=== PATIENT | female | born 1980 | race Caucasian/White ===

== ENCOUNTER 2023-04-13 22:06 | Emergency (ER) | payer MEDICAID, SELFPAY ==
[2023-04-13 22:07] VITALS: BP 172/100; PULSE 89; RESP 17; TEMP 36.4; O2SAT 100; BMI 43.7
--- NOTE | 2023-04-13 22:42 | EDS_ITS ---
HPI History of Present Illness Chief Complaint: Chest Pain Narrative Narrative: 43-year-old female who denies significant past medical history presents with burning sensation in her left chest along with pleuritic chest pain that she is essentially had since yesterday after lunch. While it was not as severe, she states today it worsened and she has a sharp pain when she takes a deep breath along with a burning sensation on the left side of her chest under her left breast. She denies any fevers or chills, no nausea or vomiting, no abdominal pain. She denies any recent leg swelling. She does take control pills. She presents with her left-sided chest pain that is mainly pleuritic since yesterday. PFSH PFS Home Medications vits,calcium no.78-iron fumarate-folic acid 29 mg-1 mg tablet (Prenatabs FA) 1 tab PO DAILY 04/15/14 [History Last Taken 04/30/14 21:00 one] ibuprofen 600 mg tablet 600 mg PO Q6H PRN Pain ##40 05/01/14 [Rx Last Taken Unknown] clindamycin HCl 300 mg capsule 300 mg TID 11/21/15 [History Last Taken Unknown] naproxen 500 mg tablet 500 mg PO BID #20 tabs 11/21/15 [Rx Last Taken Unknown] oxycodone-acetaminophen 5 mg-325 mg tablet 1 - 2 tab PO Q4H PRN PRN Pain #20 tabs 11/21/15 [Rx Last Taken Unknown] penicillin V potassium 500 mg tablet 500 mg PO 4X/DAY #40 tabs 11/21/15 [Rx Last Taken Unknown] Allergy/AdvReac Type Severity Reaction Status Date / Time ragweed pollen Allergy Other Verified 04/13/23 22:09 Social History Smoking Status: Never smoker ROS ROS ED ROS Narrative Constitutional: No fever, no chills. HEENT: No sore throat. No neck pain. No loss of vision. No rhinorrhea. Cardiovascular: Left-sided burning and pleuritic chest pain. No palpitations. No pedal edema. Respiratory: No cough, no shortness of breath. Abdominal: No abdominal pain. No nausea. No vomiting. Genitourinary: No dysuria. No hematuria. Musculoskeletal: No myalgias. No arthralgias. Neurologic: No headaches. No dizziness. No lightheadedness. Skin: No rash. No change in color. Psychiatric: No depression. No anxiety. EXAM Physical Exam Narrative Exam Narrative: Afebrile. Vital signs noted. HEENT: Normocephalic. Atraumatic. PERRL, EOMI. Neck soft and supple. No point tenderness or step off. Cardiovascular: Regular rate and rhythm. No murmurs, rubs, or gallops appreciated. Respiratory: No tachypnea. Lungs clear to auscultation bilaterally. Gastrointestinal: Abdomen soft, nontender, with normoactive bowel sounds. No rebound or guarding. Neurological: Awake. Alert. Nonfocal, nonlateralizing. Skin: No rash. Normal color. No pallor. Musculoskeletal: No pedal edema. Full range of motion extremities. Const Vital Signs: 04/13/23 22:07 04/13/23 22:34 04/13/23 22:34 Temperature 97.6 F L Temperature Source Temporal Pulse Rate 89 Respiratory Rate 17 Respiratory Effort Normal Non-Labored Blood Pressure 172/100 H Blood Pressure Mean 124 Pulse Ox 100 Oxygen Delivery Method Room Air Room Air Heart Score History: Slightly/Non-Suspicious ECG: Normal Age: </= 45 years Risk Factors: 1 or 2 Risk Factors Score: 1 MDM MDM MDM Narrative Medical decision making narrative: I reviewed the patient's prior records. I found a noncontributory to her chief complaint currently. In the differential diagnosis is acute coronary syndrome/ischemic chest pain, pulmonary embolism, pneumothorax. Lower on the differential is pneumonia as well. Her pulse ox is 100% on room air without evidence of hypoxia. She is not tachycardic. However she cannot be PERC rule out as she is on control pills. I do feel that a D-dimer would help rule out pulmonary embolism. Additionally, I do feel that 1 troponin would be sufficient and that she does not require serial enzymes because she has had pain for greater than 6 hours. EKG was obtained and interpreted by myself indepe ndently as normal sinus rhythm at 87 bpm without ectopy or acute ST changes. No STEMI. She was administered aspirin. I reviewed her laboratory work from today and she has slightly elevated white co unt of 11.6, which I think is nonspecific, but it appears to be a chronic leukocytosis. Hemoglobin normal at 13.5, hematocrit 41.6, normal platelet count of 283. CMP was reviewed and she has normal sodium of 138, potassium normal at 4.1, BUN normal at 7 with creatinine also normal at 0.71. Glucose appropriately elevated at 114 with an anion gap normal at 6. D-dimer is negative at 0.34, I have low suspicion for pulmonary embolism. Her high-sensitivity troponin is less than 3 and this is greater than 2 and an greater than 6-hour troponin. Once again I do not feel that she requires observation or admission given her negative workup today. I reviewed her chest x-ray in 1 view and interpreted it independently, I see no evidence of pneumothorax or pneumonia. I do not feel antibiotics are indicated. I reviewed the radiology report which confirms my independent interpretation. Upon repeat examination she is resting comfortably. She states her pain is improving. Her blood pressure is coming down on its own from what it was initially in triage. I do not feel she requires observation. I feel she be discharged safely home with follow-up to her primary care provider. She was referred to an on-call physician. Return instructions to the emergency department were reviewed. Disposition is discharged home in stable condition. History & Record Review Discussion w/independent historian: Patient Additional record(s) reviewed:: Prior ED visit and Prior labs Lab Data Attestation: I reviewed the patient's lab results. Labs: Laboratory Results - last 24 hr 04/13/23 21:30 WBC 11.6 H RBC 4.49 Hgb 13.5 Hct 41.6 MCV 92.7 MCH 30.1 MCHC 32.5 RDW Std Deviation 42.7 RDW Coeff of [place] 12.5 Plt Count 283 MPV 9.2 Immature Gran % (Auto) 0.300 Neut % (Auto) 69.0 Lymph % (Auto) 20.7 Coleman % (Auto) 9.2 Eos % (Auto) 0.4 Baso % (Auto) 0.4 Absolute Neuts (auto) 8.0 H Absolute Lymphs (auto) 2.39 Nucleated RBC % 0 D-Dimer Quant (PE/DVT) 0.34 Sodium 138 Potassium 4.1 Chloride 105 Carbon Dioxide 27.0 Anion Gap 6 BUN 7 Creatinine 0.71 Estim Creat Clear Calc 85.39 Est GFR (MDRD) Af Amer 115 Est GFR (MDRD) Non-Af 95 BUN/Creatinine Ratio 9.8 L Glucose 114 H Calcium 9.8 Troponin I High Sens < 3 L Lipase 26 Serum , Qual NEGATIVE Radiography Diagnostic Testing: Clinical Impression(s) from Imaging Studies Chest X-Ray 04/13/23 22:43 IMPRESSION: No evidence of active intrathoracic disease. Electronically Signed: Lucretia Ferris MD at 23:53 EDT Reading Location ID and State: [address] [place] [address] Tel , Service support , Discharge Plan Triage Chief Complaint: Chest Pain ED Provider: Ritchie Duarte Dx/Rx/DC Orders Clinical Impression: Pleuritic pain, Burning chest pain, Chest pain Instructions: ED Chest Pain, Uncertain Cause Prescriptions: No Action vit,[id number] [Prenatabs FA] 1 TABLET tablet 1 tab PO DAILY ibuprofen 600 MG tablet 600 mg PO Q6H PRN (Reason: Pain) Qty: 40 0RF clindamycin HCl 300 MG capsule 300 mg TID penicillin V potassium 500 MG tablet 500 mg PO 4X/DAY Qty: 40 0RF oxycodone-acetaminophen 1 TABLET tablet 1 - 2 tab PO Q4H PRN PRN (Reason: Pain) Qty: 20 0RF naproxen 500 MG tablet 500 mg PO BID Qty: 20 0RF Primary Care Provider: Care Physician,No Primary Referrals: Lisandro Willoughby MD [Med Staff - Active Staff] - 3-5 Days if not improving Care Physician,No Primary [Primary Care Provider] - Disposition Disposition: Home, Self Care
--- NOTE | 2023-04-13 22:43 | RAD_ITS ---
INDICATION: chest pain EXAMINATION/TECHNIQUE: X-RAY - XR Chest 1 View AP portable. 10:43 PM COMPARISON: FINDINGS: LINES/DEVICES: None. LUNGS: No consolidation. No pneumothorax. MEDIASTINUM: Unremarkable. CARDIAC SILHOUETTE: Not enlarged. BONES AND SOFT TISSUES: No acute abnormalities. RAD/Chest 1 View (Portable) IMPRESSION: No evidence of active intrathoracic disease. Electronically Signed: Lucretia Ferris MD at 23:53 EDT ,
--- NOTE | 2023-04-13 22:45 | EKG12_ITS ---
Test Reason : CP Blood Pressure : / mmHG Vent. Rate : 087 BPM Atrial Rate : 087 BPM P-R Int : 146 ms QRS Dur : 088 ms QT Int : 348 ms P-R-T Axes : 055 017 029 degrees QTc Int : 418 ms Normal sinus rhythm Normal ECG Confirmed by ACE MANCILLA, DIRK ([id number]), business editor KANG PEREZ ([id number]) on 04/17/2023 8:27:18 AM Referred By: Gerald Confirmed By:TAYLOR BELLO MD
[2023-04-13 22:48] LABS: Absolute Lymphocyte Count 2.39 X10^3/uL (0.83-4.51); Basophil# 0.05 X10^3/uL; Basophil% 0.4 % (0-1); Eosinophil# 0.05 X10^3/uL; Eosinophils% 0.4 % (0-5); Hematocrit 41.6 % (37-47); Hemoglobin 13.5 g/dL (12.0-15.0); Lymphocyte # 2.39 X10^3/ul (0.83-4.51); Lymphocyte % 20.7 % (19-41); Mean Corp Hgb Conc 32.5 g/dL (32-36); Mean Corpuscular Hgb 30.1 pg (27.0-32.0); Mean Corpuscular Volume 92.7 fL (81-99); Mean Platelet Vol. 9.2 fl (6.2-12.0); Monocyte# 1.07 X10^3/uL; Monocyte% 9.2 % (0-10); NRBC Flagged by Analyzer 0 % (0-5); Neutrophil # 7.98 X10^3/uL (2.7-7.7); Platelet Count 283 K/mm3 (150-450); RBC Distribution Width CV 12.5 % (11.6-14.6); RBC Distribution Width SD 42.7 fl (35.1-43.9); Red Blood Count 4.49 M/mm3 (4.2-5.4); White Blood Count 11.6 K/mm3 (4.4-11.0)
[2023-04-13 22:58] LABS: Internal QC Validated? YES +Cl - CLEAR BKGD; Pregnancy, Serum, hCG Quali. NEGATIVE Negative
[2023-04-13 23:00] LABS: D-Dimer Quantitative (DVT/PE) 0.34 FEU/ug/m (0.27-0.49)
[2023-04-13 23:07] LABS: Anion Gap 6 (5-15); BUN 7 mg/dL (7-18); BUN/Creat Ratio 9.8 RATIO (10-20); Calcium,Total 9.8 mg/dL (8.5-10.1); Chloride 105 mmol/L (98-107); Creatinine, Serum 0.71 mg/dL (0.55-1.02); EST Glomerular Filtration Rate 95 mL/min (>60); Est Glom Filt Rate - Afr Amer 115 mL/min (>60); Estimated Creatinine Clearance 85.39 ml/min; Glucose 114 mg/dL (74-106); Lipase 26 U/L (13-75); Potassium 4.1 mmol/L (3.5-5.1); Sodium Level 138 mmol/L (136-145); Troponin-I HS < 3 pg/mL (3.0-54.0)
[2023-04-13] MEDS: 0.9% Normal Saline 1,000 ML 1000 ML IV (23:07)
[2023-04-13] MEDS: Aspirin 81 MG TAB.CHEW 324 MG PO (23:08)
[2023-04-14 00:02] VITALS: BP 149/82; PULSE 84; RESP 16
== END 2023-04-14 00:06 | disposition home or self-care (01) ==
PROVIDERS: Emergency Provider Emergency Medicine; Visit Provider Emergency Medicine
DX: R07.81 Pleurodynia (principal); D72.829 Elevated white blood cell count, unspecified
CPT/HCPCS: 71045; 80048; 83690; 84484; 84703; 85025; 85379; 93005; 96360; 99285; J7030; A4216